=== PATIENT | female | born 1980 | race Caucasian/White ===

== ENCOUNTER 2019-06-26 14:07 | Emergency (ER) | payer BC, SELFPAY ==
[2019-06-26 14:30] VITALS: BP 147/85; PULSE 108; RESP 16; TEMP 36.6; O2SAT 98
--- NOTE | 2019-06-26 14:51 | ED.URI ---
HPI - URI/Sore Throat General Chief Complaint: Upper Respiratory Infection Stated Complaint: Congestion Time Seen by Provider: 06/26/19 14:51 Source: patient and RN notes reviewed Mode of arrival: ambulatory Limitations: no limitations History of Present Illness HPI Narrative: 38-year-old female presents with concern for 2-week history of nasal congestion, drainage. Reports recent sinus pain and pressure. Reports right-sided sinus headache. Reports taking [id number] medications with no relief. MD elicited complaint: nasal congestion Related Data Allergies Allergy/AdvReac Type Severity Reaction Status Date / Time mushroom Allergy Unknown Verified 06/26/19 14:40 Review of Systems Review of Systems: Narrative: CONSTITUTIONAL: Reports malaise. Denies chills, sweats, or fever. EYES: Denies visual changes, redness, or discharge. ENT: Reports rhinorrhea, congestion, sinus pain. Denies otalgia and sore throat. CARDIOVASCULAR: Denies chest pain, palpitations, or edema. RESPIRATORY: Denies cough or dyspnea. GASTROINTESTINAL: Denies abdominal pain, nausea, vomiting, diarrhea SKIN: Denies rash or itching. MUSCULOSKELETAL: Denies myalgia. NEUROLOGIC: Reports headache. All systems reviewed & are unremarkable except as noted in HPI and below PMFSH Comments At time of signature, agree with nursing past medical, surgical, social and family history. There is no relevant family history pertinent to the presenting complaint Exam Narrative: Exam Narrative: GENERAL: Well-appearing, well-nourished, and in no acute distress. HEAD: Normocephalic, atraumatic. EYES: PERRLA, conjunctivae clear, and EOMI. ENT: Nares clear, turbinates edematous and erythematous, purulent discharge, sinus tenderness. Mucous membranes moist. TM pearly dumont with sharp light reflex bilaterally; no tragal tenderness. Oropharynx not erythematous without lesions. Tonsils not enlarged and without exudate, no drooling, no hoarseness, no trismus. NECK: Supple. No lymphadenopathy CHEST: Clear to auscultation, breath sounds equal. No wheezing, rhonchi, rales, or stridor. No respiratory distress, speaks in full sentences. HEART: Regular rate and rhythm. No murmur heard. Normal peripheral pulses. SKIN: Warm, dry, no rash. NEURO: Alert and oriented x3. PSYCH: Normal mood and affect Course Course Emergency Course: Patient is aware of diagnosis, understands and agrees to treatment plan. Anticipatory guidance given. Patient agrees to follow-up as directed and is aware of reasons to seek care at the emergency department. Portions of this record may have been created with voice recognition software Vital Signs Vital signs: Vital Signs Temperature 98 F 06/26/19 14:30 Pulse Rate 108 H 06/26/19 14:30 Respiratory Rate 16 06/26/19 14:30 Blood Pressure 147/85 H 06/26/19 14:30 Pulse Oximetry 98 06/26/19 14:30 Temperature 98 F 06/26/19 14:30 Pulse Rate 108 H 06/26/19 14:30 Respiratory Rate 16 06/26/19 14:30 Blood Pressure 147/85 H 06/26/19 14:30 Pulse Oximetry 98 06/26/19 14:30 Reviewed. Patient has current diagnosis of hypertension MDM - URI/Sore Throat MDM Narrative Medical decision making narrative: Differential diagnosis considered: Strep pharyngitis, allergic rhinitis, upper respiratory tract infection, sinusitis, rhinosinusitis, nasopharyngitis. viral pharyngitis, otitis media, otitis externa, pneumonia, bronchitis, viral cough syndrome, viral syndrome, and influenza. Exam findings show no acute concerns or changes; patient is non-toxic appearing and is in no distress. Patient is appropriate for outpatient treatment and follow-up. Critical Care Time Critical Care Time Critical Care Time: No Discharge Plan Discharge Clinical Impression: Acute bacterial sinusitis Patient Disposition: Home, Self-Care Condition: Stable Instructions: Antibiotic Form, Sinusitis (ED) Additional Instructions: Take medications as directed Nonprescri
== END 2019-06-26 15:00 | disposition home or self-care (01) ==
PROVIDERS: Emergency Provider Nurse Practitioner; PCP Family Medicine
DX: J01.90 Acute sinusitis, unspecified (principal); I10 Essential (primary) hypertension; J45.909 Unspecified asthma, uncomplicated; E11.9 Type 2 diabetes mellitus without complications; E03.9 Hypothyroidism, unspecified; N80.9 Endometriosis, unspecified
CPT/HCPCS: 99213; G0463

== ENCOUNTER 2020-03-13 15:27 | Emergency (ER) | payer BC, SELFPAY ==
[2020-03-13 16:12] VITALS: BP 139/90; PULSE 125; RESP 18; TEMP 36.2; O2SAT 98
--- NOTE | 2020-03-13 16:19 | ED.GENADULT ---
HPI - General Adult General Chief complaint: Upper Respiratory Infection Stated complaint: Sore throat Time Seen by Provider: 03/13/20 16:19 Source: patient and RN notes reviewed Mode of arrival: ambulatory Limitations: no limitations History of Present Illness HPI narrative: 39-year-old female presents to [facility] care with complaints of severe sore throat and cough for the past 4 days. Patient states that she has history of asthma and she has been using her inhaler due to cough and some shortness of breath with exertion. She states that her throat has progressively become so sore that it hurts to swallow and is having difficulty eating. Patient denies any ear pain, has had some headache discomfort, denies any nasal congestion or sinus drainage. Patient states that she has been using oral throat spray for her discomfort and has been taking Ibuprofen but minimal pain decrease. MD complaint: sore throat Onset (ago): day(s) (since Wednesday) Location: mouth Radiation: non-radiation Severity: moderate and severe Severity scale (1-10): 7 Quality: aching and sharp Pain Consistency: constant Relieving factors: none Exacerbating factors: eating and other (swallowing) Associated symptoms: cough, headaches and shortness of breath (history of asthma) Treatments prior to arrival: NSAID and other (throat spray, inhaler) Related Data Home Medications Medication Instructions Recorded Confirmed albuterol sulfate [Ventolin HFA] 90 inh INHALATION PRN 03/13/20 03/13/20 Allergies Allergy/AdvReac Type Severity Reaction Status Date / Time mushroom Allergy Unknown Verified 03/13/20 16:36 Review of Systems Review of Systems: Narrative: CONSTITUTIONAL: Denies fever, chills, or sweats. EYES: Denies visual changes, redness, or discharge. ENT: Denies rhinorrhea, congestion, positive for sore throat, no otalgia. CARDIOVASCULAR: Denies chest pain, palpitations, or edema. RESPIRATORY:Positive cough and dyspnea with exertion GASTROINTESTINAL: Denies abdominal pain, nausea, vomiting, or diarrhea. GENITOURINARY: Denies dysuria or hematuria. SKIN: Denies rash or itching. MUSCULOSKELETAL: Denies back pain, joint pain, or myalgia. NEUROLOGIC: Positive headache, no numbness, or weakness. PSYCHIATRIC: Denies anxiety or depression. All systems reviewed & are unremarkable except as noted in HPI and below [facility] Past Medical History Medical History (Updated 03/14/20 @ 00:00 by Ivy Khan) Anemia Asthma Diabetes Kidney stones Surgical History Surgical History (Updated 03/13/20 @ 16:32 by Ema Perkins NP) H/O tubal ligation History of endometrial ablation Hx of breast reduction, elective Family History Family History (Updated 03/13/20 @ 16:33 by Ema Perkins NP) Mother Diabetes mellitus Father CAD (coronary artery disease) Social History Social History (Updated 03/15/20 @ 15:27 by Ema Perkins NP) Smoking status: Never smoker Alcohol intake: never Substance use: never Living arrangements: with family Gender identity (if verbalized by the patient): Female Comments At time of signature, agree with nursing past medical, surgical, social and family history. There is no relevant family history pertinent to the presenting complaint Exam Narrative: Exam Narrative: GENERAL: Well-appearing, well-nourished, and in mild distress. HEAD: Normocephalic, atraumatic. EYES: PERRLA and EOMI. ENT: Nares clear, no rhinorrhea or epistaxis. Mucous membranes moist.TM's normal with good light reflex, Throat red with exudates tonsils red inflamed and swollen NECK: Supple. Lymphadenopathy CHEST: Clear decreased to auscultation. No respiratory distress. SaO2 98% on room air HEART: Regular rate and rhythm. No murmur heard. Normal peripheral pulses. ABDOMEN: Soft, nontender, nondistended, normal active bowel sounds. EXTREMITIES: Normal range of motion. No edema. SKIN: Warm, dry, no rash. NEURO: No focal deficits.
== END 2020-03-13 17:03 | disposition home or self-care (01) ==
PROVIDERS: Emergency Provider Registered Nurse; PCP Family Medicine
DX: J02.0 Streptococcal pharyngitis (principal); E11.9 Type 2 diabetes mellitus without complications; J45.909 Unspecified asthma, uncomplicated
CPT/HCPCS: 87880; 99213; G0463

== ENCOUNTER 2021-02-26 13:36 | Outpatient (CLI) | payer BC, SELFPAY ==
[2021-02-26 18:56] LABS: Vitamin D 25 Hydroxy 12.9 ng/mL
[2021-03-01 07:36] LABS: FSH 5.6 mIU/mL (***); LH 4.5 mIU/mL (***)
[2021-03-03 10:23] LABS: Testosterone Total 17 ng/dL (2-45)
[2021-03-04 17:17] LABS: Estradiol, Ultrasensitive 104 pg/mL
[2021-03-05 05:05] LABS: Testosterone Free 3.5 pg/mL (0.2-5.0)
== END 2021-02-26 13:37 | disposition home or self-care (01) ==
LOC: ANHBWCLAB 13:37
PROVIDERS: PCP Family Medicine; Visit Provider Obstetrics & Gynecology
DX: L68.0 Hirsutism (principal); N92.6 Irregular menstruation, unspecified; R53.83 Other fatigue
CPT/HCPCS: 36415; 82306; 82670; 83001; 83002; 84402; 84403